=== PATIENT | male | born 2000 | race Caucasian/White ===

== ENCOUNTER 2018-09-14 06:10 | Emergency (ER) | payer OTHER ==
[2018-09-14 06:19] VITALS: BP 132/84; PULSE 74; RESP 16; TEMP 98; O2SAT 99
--- NOTE | 2018-09-14 06:34 | C.PDOC ---
Time Seen by Provider: 09/14/18 06:25 Chief Complaint (Nursing): ENT Problem Past Medical History Vital Signs: Last Vital Signs Temp 98.0 F 09/14/18 06:15 Pulse 74 09/14/18 06:15 Resp 16 09/14/18 06:15 BP 132/84 09/14/18 06:15 Pulse Ox 99 09/14/18 06:15 Primary Care Provider: Candice Enamorado Family History: States: Unknown Family Hx - Social History Hx Tobacco Use: No Hx Alcohol Use: Yes (Occasional) Hx Substance Use: No ED Course And Treatment O2 Sat by Pulse Oximetry: 99 Disposition Counseled Patient/Family Regarding: Diagnosis, Need For Followup, Rx Given - Disposition Referrals: Candice Enamorado FNP [Advanced Practice Nurse] - Disposition: HOME/ ROUTINE Disposition Time: 06:45 Condition: STABLE Additional Instructions: Continue meds as prescribed Salt water gargles four times a day Rest and hydration Tea, honey, lemon Follow up with PMD if symptoms persist Return to ED if symptoms worsen Prescriptions: Acetaminophen [Tylenol] 650 mg PO Q6 PRN #30 capsule PRN Reason: Pain, Moderate (4-7) Azithromycin [Zithromax] 250 mg PO DAILY #4 tab Instructions: Strep Throat (DC) - Clinical Impression Clinical Impression: Sore throat, Strep pharyngitis - 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
--- NOTE | 2018-09-14 06:47 | C.PDOC ---
History Of Present Illness 17 year old male presents to the ED c/o sore throat for the past 2 days. Patient reports trying salt water gargles as well as apple cider vinegar gargles with no relief. He denies use of OTC pain meds. Patient denies fever, chills, headache, cough, congestion, SOB, rash, nausea, vomit, rash, recent travel, sick contacts. Time Seen by Provider: 09/14/18 06:25 Chief Complaint (Nursing): ENT Problem History Per: Patient History/Exam Limitations: None Onset/Duration Of Symptoms: Days (2) Current Symptoms Are (Timing): Still Present Quality (Mouth/Throat): Tenderness Severity: None Anticoagulant/Antiplatlet Use?: No Recent Aspirin Use: No Past Medical History Reviewed: Historical Data, Nursing Documentation, Vital Signs Vital Signs: Last Vital Signs Temp 98.0 F 09/14/18 06:15 Pulse 74 09/14/18 06:15 Resp 16 09/14/18 06:15 BP 132/84 09/14/18 06:15 Pulse Ox 99 09/14/18 06:44 Primary Care Provider: Candice Enamorado - Medical History PMH: No Chronic Diseases Surgical History: No Surg Hx Family History: States: Unknown Family Hx - Social History Hx Tobacco Use: No Hx Alcohol Use: Yes (Occasional) Hx Substance Use: No Review Of Systems Constitutional: Negative for: Fever, Chills ENT: Positive for: Throat Pain. Negative for: Nose Discharge, Nose Congestion, Throat Swelling Respiratory: Negative for: Cough, Shortness of Breath, Wheezing Gastrointestinal: Negative for: Nausea, Vomiting, Abdominal Pain Skin: Negative for: Rash Neurological: Negative for: Headache Physical Exam - Physical Exam Appears: Non-toxic, No Acute Distress Skin: Normal Color, Warm, Dry Head: Atraumatic, Normacephalic Eye(s): bilateral: Normal Inspection, PERRL Ear(s): Bilateral: Normal Nose: No Discharge Oral Mucosa: Moist Tongue: Normal Appearing Lips: Normal Appearing Throat: Erythema (bilateral tonsils), Exudate (bilateral tonsils) Neck: Normal ROM, Supple Chest: Symmetrical Cardiovascular: Rhythm Regular Respiratory: Normal Breath Sounds, No Rales, No Rhonchi, No Wheezing Gastrointestinal/Abdominal: Soft, No Tenderness Neurological/Psych: Oriented x3, Normal Speech, Normal Cognition Gait: Steady ED Course And Treatment O2 Sat by Pulse Oximetry: 99 (ON RA) Pulse Ox Interpretation: Normal Medical Decision Making Medical Decision Making: Plan: * Tylenol 650 mg PO * Zithromax 500 mg PO Disposition Counseled Patient/Family Regarding: Diagnosis, Need For Followup, Rx Given - Disposition Referrals: Candice Enamorado FNP [Advanced Practice Nurse] - Disposition: HOME/ ROUTINE Disposition Time: 06:52 Condition: STABLE Additional Instructions: Continue meds as prescribed Salt water gargles four times a day Rest and hydration Tea, honey, lemon Follow up with PMD if symptoms persist Return to ED if symptoms worsen Prescriptions: Acetaminophen [Tylenol] 650 mg PO Q6 PRN #30 capsule PRN Reason: Pain, Moderate (4-7) Azithromycin [Zithromax] 250 mg PO DAILY #4 tab Instructions: Strep Throat (DC) Forms: [employer] ([place]) - Clinical Impression Clinical Impression: Sore throat, Strep pharyngitis - PA / SURGICAL SERVICES ASSISTANT / Resident Statement MD/DO has reviewed & agrees with the documentation as recorded. - Scribe Statement The provider has reviewed the documentation as recorded by the Scribe Marcelino Jurado All medical record entries made by the Scribe were at my direction and personally dictated by me. I have reviewed the chart and agree that the record accurately reflects my personal performance of the history, physical exam, medical decision making, and the department course for this patient. I have also personally directed, reviewed, and agree with the discharge instructions and disposition.
== END 2018-09-14 06:52 | disposition home or self-care (01) ==
LOC: C.ER 06:10
DX: J02.0 Streptococcal pharyngitis (principal)